=== PATIENT | male | born 1960 | race Caucasian/White ===

== ENCOUNTER 2023-10-23 14:09 | Inpatient (IN) | payer MEDICARE, SELFPAY ==
[2023-10-23] VITALS (38 sets, daily range): BP systolic 57–117; BP diastolic 36–56; PULSE 90–123; RESP 14–34; TEMP 36.9–37.1; O2SAT 86–98; BMI 58.1
--- NOTE | 2023-10-23 15:05 | XR_ITS ---
WS: [id number] Portable AP supine chest, 10/23/2023 Clinical Data: dyspnea/cough Comparison: None. Findings: No nodules, masses or effusions are seen. The heart is enlarged. The pulmonary vascularity is not increased. No pneumonia or pneumothorax is seen. The aortic arch and descending thoracic aorta show tortuosity. Monitor leads are on the chest wall. There is a dextroscoliosis. XR/XR chest 1V portable [id number] Impression: Cardiomegaly and atherosclerosis.
--- NOTE | 2023-10-23 15:05 | W.ED.GENADLT ---
Documented by User: Brijesh Gamino DO 10/24/23 07:42 HPI - General Adult General: Chief complaint: Nausea/Vomiting/Diarrhea Stated complaint: Weakness Time Seen by Provider: 10/23/23 14:11 Source: patient Mode of arrival: ambulatory History of Present Illness: Associated symptoms: Deny chest pain, dyspnea or rash Review of Systems Const: Denies: fever(s) or chills Card: Denies: chest pain Resp: Denies: dyspnea GI: Denies: abdominal pain : Denies: dysuria, urinary frequency or urinary urgency Musc: Denies: neck pain or back pain Skin/Breast: Denies: rash PFSH ED PFSH: Medical History (Updated 10/23/23 @ 21:08 by Kalpesh Main MD) History of hypertension History of diabetes mellitus, type II History of DVT (deep vein thrombosis) History of pulmonary embolism History of atrial fibrillation Surgical History (Updated 10/23/23 @ 21:04 by Kalpesh Main MD) History of cholecystectomy Family History (Updated 10/23/23 @ 21:04 by Kalpesh Main MD) Father Pancreatic cancer Sister Pancreatitis Physical Exam Const: COMMON NORMALS: no acute distress GENERAL APPEARANCE: cooperative and comfortable ORIENTATION/CONSCIOUSNESS: Yes awake, Yes oriented to person, Yes oriented to place and Yes oriented to time HENMT: COMMON NORMALS: normocephalic, atraumatic and hearing grossly normal bilaterally HEAD & SCALP: normocephalic and atraumatic Resp: COMMON NORMALS: normal respiratory effort, No retractions, No use of accessory muscles and clear to auscultation bilaterally AUSCULTATION: clear to auscultation bilaterally Cardio: COMMON NORMALS: regular rate, regular rhythm and No murmurs present (Cardio) RATE: regular rate RHYTHM: regular rhythm GI: COMMON NORMALS: Soft to palpation and No hepatosplenomegaly present AUSCULTATION: Yes normoactive bowel sounds PALPATION: Yes Soft to palpation, No Tenderness to palpation present (GI), No Guarding due to palpation present (GI) and Yes No hepatosplenomegaly present Extremity: COMMON NORMALS: normal to inspection, capillary refill normal, no clubbing, cyanosis or edema, no calf tenderness and no pedal edema Neuro: SENSORIUM/ORIENTATION: Yes oriented to person, Yes oriented to place and Yes oriented to time Skin: COMMON NORMALS: no rashes or lesions noted GENERAL SKIN EXAM: no rashes or lesions noted Course Vital Signs: Vital signs: Vital Signs Temperature 98.2 F 10/24/23 04:00 Pulse Rate 87 10/24/23 07:30 Respiratory Rate 32 H 10/24/23 07:30 Blood Pressure 118/61 10/24/23 07:30 Pulse Oximetry 86 L 10/24/23 07:30 Oxygen Delivery Me thod Nasal Cannula 10/24/23 04:00 Oxygen Flow Rate 3 10/24/23 04:00 [facility] - General Adult Medical Decision Making Patient presents severely hypotensive and septic. We are still waiting on his CT. No leukocytosis he is also jaundiced with a T. bili of 6.1 liver functions are slightly elevated and alk phos of 277 CPK of 437 and CRP 150. His lipase is 644. He started on antibiotics she was also given a fluid bolus initially given 1500 I felt there was some fluid overload on his chest x-ray he was given a balance of a 30 mL/kg fluid bolus based on his ideal weight because of his severe obesity. Patient presents in septic shock. Titrated up on Levophed added vasopressin and epinephrine. Initially there is no leukocytosis waiting CT and ultrasound of the gallbladder. Given his initial lab returned with elevated liver functions T. bili and lipase suspect choledocholithiasis/ascending cholangitis. He has been started on antibiotics. Care signed out to Dr. Lozada at change of shift. See final notes for diagnosis and disposition. Patient presents here severe septic shock I took patient over from Dr. Malcolm did place central line he is on pressors currently CT abdomen showed no acute findings he has been given antibiotics already along with fluid bolus for his ideal body weight of spoke to hospitalist Dr. Geiger will admit to the ICU Medical Records I reviewed the patient's medical records. Lab Data I reviewed the patient's lab results. 10/24/23 05:30 10/24/23 05:30 Radiology Impressions Abdomen/Pelvis CT 10/23/23 16:18 IMPRESSION: No acute abdominal findings. Gallbladder Ultrasound 10/23/23 17:38 IMPRESSION: 1. Biliary ductal dilatation with the common bile duct measuring up to approximately 1.7 cm. Correlate with LFTs and, if clinically indicated, ERCP or MRCP. 2. Fatty liver. Laboratory Results WBC 4.60 10^3/uL (3.29-11.43) 10/23/23 15:14 RBC 3.67 10^6/uL (3.85-5.65) L 10/23/23 15:14 Hgb 11.80 g/dL (11.27-16.99) 10/23/23 15:14 Hct 36.2 % (37-53) L 10/23/23 15:14 MCV 98.6 fl (82-101) 10/23/23 15:14 MCH 32.2 pg (27-33) 10/23/23 15:14 MCHC 32.6 g/dL (30-55) 10/23/23 15:14 RDW 15.9 % (12.1-15.1) H 10/23/23 15:14 Plt Count 205 10^3/cmm (157-399) 10/23/23 15:14 MPV 9.6 fL (7.4-10.4) 10/23/23 15:14 Neut % (Auto) 92.3 % 10/23/23 15:14 Lymph % (Auto) 5.7 % 10/23/23 15:14 [place] % (Auto) 0.9 % 10/23/23 15:14 Eos % (Auto) 0.0 % 10/23/23 15:14 Baso % (Auto) 0.2 % 10/23/23 15:14 Neut # (Auto) 4.25 10^3/uL (1.8-7.7) 10/23/23 15:14 Lymph # (Auto) 0.3 10^3/uL (0.8-4.8) L 10/23/23 15:14 [place] # (Auto) 0.0 10^3/uL (0.2-0.9) L 10/23/23 15:14 Eos # (Auto) 0.0 10^3/uL (0.0-0.8) 10/23/23 15:14 Baso # (Auto) 0.0 10^3/uL (0.0-0.1) 10/23/23 15:14 Nucleated RBC % (auto) 0 % 10/23/23 15:14 Nucleated RBCs # 0.0 /100WBC 10/23/23 15:14 ESR 49 mm/hr (0-10) H 10/23/23 15:14 PT 22.20 SECONDS (12.1-14.9) H 10/23/23 15:14 INR 1.87 (0.8-1.2) H 10/23/23 15:14 APTT 38.9 SECONDS (23.9-36.7) H 10/23/23 15:14 Specimen Type Arterial 10/23/23 15:15 Sample Site Radial, left 10/23/23 15:15 ABG pH 7.44 (7.35-7.45) 10/23/23 15:15 ABG pCO2 32.4 mmHg (35-45) L 10/23/23 15:15 ABG pO2 103.0 mmHg (80.0-100.0) H 10/23/23 15:15 ABG PO2/FiO2 Ratio 0 10/23/23 15:15 ABG HCO3 21.8 mmol/L (22-26) L 10/23/23 15:15 ABG O2 Saturation 99.0 10/23/23 15:15 ABG Base Excess -1.6 mmol/L (-2.0-2.0) 10/23/23 15:15 Gio Test Pos 10/23/23 15:15 A-a O2 Gradient 14.3 mmHg (5-10) H 10/23/23 15:15 Hematocrit 41.7 % (42-52) L 10/23/23 15:15 Hgb O2 Saturation 97.1 % (95-100) 10/23/23 15:15 Carboxyhemoglobin 1.4 %THgb (0.4-20.1) 10/23/23 15:15 Methemoglobin 0.5 % (0.4-1.5) 10/23/23 15:15 Total Hemoglobin 13.6 g/dL (14-18) L 10/23/23 15:15 Sodium 129.0 mmol/L (131-143) L 10/23/23 15:15 Potassium 2.6 mmol/L (3.5-5.0) L 10/23/23 15:15 Glucose 91.0 mg/dL (70-115) 10/23/23 15:15 Ionized Calcium 1.1 mmol/L (1.1-1.4) 10/23/23 15:15 O2 Delivery Device Nc 10/23/23 15:15 O2 Liters/Min 4.0 % 10/23/23 15:15 FiO2 36.0 % 10/23/23 15:15 Income Tax Investigator ID Gd 10/23/23 15:15 Sodium 128 mmol/L (136-145) L 10/23/23 15:14 Potassium 2.9 mmol/L (3.5-5.1) L 10/23/23 15:14 Chloride 91 mmol/L (98-107) L 10/23/23 15:14 Carbon Dioxide 21 mmol/L (22-29) L 10/23/23 15:14 Anion Gap 18.9 (5-19) 10/23/23 15:14 BUN 21 mg/dL (8-23) 10/23/23 15:14 Creatinine 2.1 mg/dL (0.7-1.2) H 10/23/23 15:14 GFR Calculation 32.0 mL/min (90-130) L 10/23/23 15:14 Glucose 89 mg/dL (65-115) 10/23/23 15:14 Calculated Osmolality 268 mOsm/kg (285-295) L 10/23/23 15:14 Lactic Acid 5.6 mmol/L (0.5-2.2) H* 10/23/23 15:14 Lactic Acid (Sepsis) 5.2 mmol/L (0.5-2.2) H* 10/23/23 19:35 Calcium 7.1 mg/dL (8.5-10.5) L 10/23/23 15:14 Total Bilirubin 6.1 mg/dL (0.15-1.2) H 10/23/23 15:14 GGT 616 U/L (8-61) H 10/23/23 15:14 AST 87 U/L (0-40) H 10/23/23 15:14 ALT 51 U/L (0-41) H 10/23/23 15:14 Alkaline Phosphatase 277 U/L (40-130) H 10/23/23 15:14 Ammonia 62 umol/L (16-60) H 10/23/23 15:14 Creatine Kinase 437 U/L (39-308) H* 10/23/23 15:14 Troponin T Baseline 25 ng/L (0-15) H 10/23/23 15:14 Troponin T 120 Minute 20.87 ng/L (0-15) H 10/23/23 19:35 Delta Troponin T -4.13 ABS# (0-10) L 10/23/23 19:35 C-Reactive Protein 150.5 mg/L (0.0-4.9) H 10/23/23 15:14 NT-Pro-B Natriuret Pep 2399 pg/mL (0-125) H 10/23/23 15:14 Total Protein 4.7 g/dL (6.6-8.7) L 10/23/23 15:14 Albumin 2.4 g/dL (3.5-5.2) L 10/23/23 15:14 Globulin 2.3 g/dL (1.3-4.6) 10/23/23 15:14 Lipase 644 U/L (13-60) H 10/23/23 15:14 Procalcitonin 23.47 ng/mL (0-0.5) H 10/23/23 15:14 Urine Color Dark yellow (Yellow) 10/23/23 16:00 Urine Appearance Hazy (CLEAR) A 10/23/23 16:00 Urine pH 5 (5-7) 10/23/23 16:00 Ur Specific [place] 1.020 (1.005-1.030) 10/23/23 16:00 Urine Protein Trace (Negative) 10/23/23 16:00 Urine Glucose (UA) Norm (Normal) 10/23/23 16:00 Urine Ketones Negative (Negative) 10/23/23 16:00 Urine Blood 3+ (Negative) H 10/23/23 16:00 Urine Nitrate Negative (Negative) 10/23/23 16:00 Urine Bilirubin 2+ (Negative) H 10/23/23 16:00 Urine Urobilinogen 1 mg/dL (Negative) H 10/23/23 16:00 Ur Leukocyte Esterase Negative (Negative) 10/23/23 16:00 Urine RBC 5-10 /hpf (0-2) H 10/23/23 16:00 Urine WBC 0-4 /hpf (0-5) H 10/23/23 16:00 Ur Squamous Epith Cells None /hpf (0-5) 10/23/23 16:00 Ur Transition Epith Cell 0-4 /hpf 10/23/23 16:00 Amorphous Sediment Trace /hpf 10/23/23 16:00 Urine Bacteria Trace /hpf (NONE) 10/23/23 16:00 Urine Mucus None /hpf 10/23/23 16:00 Serum Ketones Negative (Negative) 10/23/23 15:14 Discharge Plan Discharge Patient Disposition: Admitted As Inpatient Admit Provider: Kalpesh Main Clinical Impression: Septic shock Condition: Stable Coding Level of Care Code ED Pallet Stone Positioner for Chg Fwd Documented by User: Hardeep Lozada MD 10/23/23 19:57 HPI - General Adult General: Chief complaint: Nausea/Vomiting/Diarrhea Stated complaint: Weakness Time Seen by Provider: 10/23/23 14:11 History of Present Illness: . PFSH ED PFSH: Medical History (Updated 10/23/23 @ 21:08 by Kalpesh Main MD) History of hypertension History of diabetes mellitus, type II History of DVT (deep vein thrombosis) History of pulmonary embolism History of atrial fibrillation Surgical History (Updated 10/23/23 @ 21:04 by Kalpesh Main MD) History of cholecystectomy Family History (Updated 10/23/23 @ 21:04 by Kalpesh Main MD) Father Pancreatic cancer Sister Pancreatitis Procedures Central Line Placement Right IJ: Time Out Performed: Yes Patient Placed on Monitor/Pulse Ox: Yes Prep: mask, gown and gloves Central Line Prep: Chlorhexidine scrub Local Anesthetic: lidocaine 1% Amount of anesthesia used (mL): 3 Ultrasound Used for Placement: Yes Central Line Lumen Inserted: triple Post Procedure: sutured in place, good blood return, all ports aspirated, flushed, capped and sterile dressing applied Post Procedure X-Ray: tip of catheter in good position and no pneumothorax seen Patient Tolerated Procedure: well Complications: none Course Vital Signs: Vital signs: Vital Signs Temperature 98.2 F 10/24/23 04:00 Pulse Rate 87 10/24/23 07:30 Respiratory Rate 32 H 10/24/23 07:30 Blood Pressure 118/61 10/24/23 07:30 Pulse Oximetry 86 L 10/24/23 07:30 Oxygen Delivery Me thod Nasal Cannula 10/24/23 04:00 Oxygen Flow Rate 3 10/24/23 04:00 MDM - General Adult Medical Decision Making Patient presents severely hypotensive and septic. We are still waiting on his CT. No leukocytosis he is also jaundiced with a T. bili of 6.1 liver functions are slightly elevated and alk phos of 277 CPK of 437 and CRP 150. His lipase is 644. He started on antibiotics she was also given a fluid bolus initially given 1500 I felt there was some fluid overload on his chest x-ray he was given a balance of a 30 mL/kg fluid bolus based on his ideal weight because of his severe obesity Patient presents here severe septic shock I took patient over from Dr. Malcolm did place central line he is on pressors currently CT abdomen showed no acute findings he has been given antibiotics already along with fluid bolus for his ideal body weight of spoke to hospitalist Dr. Geiger will admit to the ICU Lab Data 10/24/23 05:30 10/24/23 05:30 Radiology Impressions Abdomen/Pelvis CT 10/23/23 16:18 IMPRESSION: No acute abdominal findings. Gallbladder Ultrasound 10/23/23 17:38 IMPRESSION: 1. Biliary ductal dilatation with the common bile duct measuring up to approximately 1.7 cm. Correlate with LFTs and, if clinically indicated, ERCP or MRCP. 2. Fatty liver. Laboratory Results WBC 4.60 10^3/uL (3.29-11.43) 10/23/23 15:14 RBC 3.67 10^6/uL (3.85-5.65) L 10/23/23 15:14 Hgb 11.80 g/dL (11.27-16.99) 10/23/23 15:14 Hct 36.2 % (37-53) L 10/23/23 15:14 MCV 98.6 fl (82-101) 10/23/23 15:14 MCH 32.2 pg (27-33) 10/23/23 15:14 MCHC 32.6 g/dL (30-55) 10/23/23 15:14 RDW 15.9 % (12.1-15.1) H 10/23/23 15:14 Plt Count 205 10^3/cmm (157-399) 10/23/23 15:14 MPV 9.6 fL (7.4-10.4) 10/23/23 15:14 Neut % (Auto) 92.3 % 10/23/23 15:14 Lymph % (Auto) 5.7 % 10/23/23 15:14 [place] % (Auto) 0.9 % 10/23/23 15:14 Eos % (Auto) 0.0 % 10/23/23 15:14 Baso % (Auto) 0.2 % 10/23/23 15:14 Neut # (Auto) 4.25 10^3/uL (1.8-7.7) 10/23/23 15:14 Lymph # (Auto) 0.3 10^3/uL (0.8-4.8) L 10/23/23 15:14 [place] # (Auto) 0.0 10^3/uL (0.2-0.9) L 10/23/23 15:14 Eos # (Auto) 0.0 10^3/uL (0.0-0.8) 10/23/23 15:14 Baso # (Auto) 0.0 10^3/uL (0.0-0.1) 10/23/23 15:14 Nucleated RBC % (auto) 0 % 10/23/23 15:14 Nucleated RBCs # 0.0 /100WBC 10/23/23 15:14 ESR 49 mm/hr (0-10) H 10/23/23 15:14 PT 22.20 SECONDS (12.1-14.9) H 10/23/23 15:14 INR 1.87 (0.8-1.2) H 10/23/23 15:14 APTT 38.9 SECONDS (23.9-36.7) H 10/23/23 15:14 Specimen Type Arterial 10/23/23 15:15 Sample Site Radial, left 10/23/23 15:15 ABG pH 7.44 (7.35-7.45) 10/23/23 15:15 ABG pCO2 32.4 mmHg (35-45) L 10/23/23 15:15 ABG pO2 103.0 mmHg (80.0-100.0) H 10/23/23 15:15 ABG PO2/FiO2 Ratio 0 10/23/23 15:15 ABG HCO3 21.8 mmol/L (22-26) L 10/23/23 15:15 ABG O2 Saturation 99.0 10/23/23 15:15 ABG Base Excess -1.6 mmol/L (-2.0-2.0) 10/23/23 15:15 Gio Test Pos 10/23/23 15:15 A-a O2 Gradient 14.3 mmHg (5-10) H 10/23/23 15:15 Hematocrit 41.7 % (42-52) L 10/23/23 15:15 Hgb O2 Saturation 97.1 % (95-100) 10/23/23 15:15 Carboxyhemoglobin 1.4 %THgb (0.4-20.1) 10/23/23 15:15 Methemoglobin 0.5 % (0.4-1.5) 10/23/23 15:15 Total Hemoglobin 13.6 g/dL (14-18) L 10/23/23 15:15 Sodium 129.0 mmol/L (131-143) L 10/23/23 15:15 Potassium 2.6 mmol/L (3.5-5.0) L 10/23/23 15:15 Glucose 91.0 mg/dL (70-115) 10/23/23 15:15 Ionized Calcium 1.1 mmol/L (1.1-1.4) 10/23/23 15:15 O2 Delivery Device Nc 10/23/23 15:15 O2 Liters/Min 4.0 % 10/23/23 15:15 FiO2 36.0 % 10/23/23 15:15 Income Tax Investigator ID Gd 10/23/23 15:15 Sodium 128 mmol/L (136-145) L 10/23/23 15:14 Potassium 2.9 mmol/L (3.5-5.1) L 10/23/23 15:14 Chloride 91 mmol/L (98-107) L 10/23/23 15:14 Carbon Dioxide 21 mmol/L (22-29) L 10/23/23 15:14 Anion Gap 18.9 (5-19) 10/23/23 15:14 BUN 21 mg/dL (8-23) 10/23/23 15:14 Creatinine 2.1 mg/dL (0.7-1.2) H 10/23/23 15:14 GFR Calculation 32.0 mL/min (90-130) L 10/23/23 15:14 Glucose 89 mg/dL (65-115) 10/23/23 15:14 Calculated Osmolality 268 mOsm/kg (285-295) L 10/23/23 15:14 Lactic Acid 5.6 mmol/L (0.5-2.2) H* 10/23/23 15:14 Lactic Acid (Sepsis) 5.2 mmol/L (0.5-2.2) H* 10/23/23 19:35 Calcium 7.1 mg/dL (8.5-10.5) L 10/23/23 15:14 Total Bilirubin 6.1 mg/dL (0.15-1.2) H 10/23/23 15:14 GGT 616 U/L (8-61) H 10/23/23 15:14 AST 87 U/L (0-40) H 10/23/23 15:14 ALT 51 U/L (0-41) H 10/23/23 15:14 Alkaline Phosphatase 277 U/L (40-130) H 10/23/23 15:14 Ammonia 62 umol/L (16-60) H 10/23/23 15:14 Creatine Kinase 437 U/L (39-308) H* 10/23/23 15:14 Troponin T Baseline 25 ng/L (0-15) H 10/23/23 15:14 Troponin T 120 Minute 20.87 ng/L (0-15) H 10/23/23 19:35 Delta Troponin T -4.13 ABS# (0-10) L 10/23/23 19:35 C-Reactive Protein 150.5 mg/L (0.0-4.9) H 10/23/23 15:14 NT-Pro-B Natriuret Pep 2399 pg/mL (0-125) H 10/23/23 15:14 Total Protein 4.7 g/dL (6.6-8.7) L 10/23/23 15:14 Albumin 2.4 g/dL (3.5-5.2) L 10/23/23 15:14 Globulin 2.3 g/dL (1.3-4.6) 10/23/23 15:14 Lipase 644 U/L (13-60) H 10/23/23 15:14 Procalcitonin 23.47 ng/mL (0-0.5) H 10/23/23 15:14 Urine Color Dark yellow (Yellow) 10/23/23 16:00 Urine Appearance Hazy (CLEAR) A 10/23/23 16:00 Urine pH 5 (5-7) 10/23/23 16:00 Ur Specific [place] 1.020 (1.005-1.030) 10/23/23 16:00 Urine Protein Trace (Negative) 10/23/23 16:00 Urine Glucose (UA) Norm (Normal) 10/23/23 16:00 Urine Ketones Negative (Negative) 10/23/23 16:00 Urine Blood 3+ (Negative) H 10/23/23 16:00 Urine Nitrate Negative (Negative) 10/23/23 16:00 Urine Bilirubin 2+ (Negative) H 10/23/23 16:00 Urine Urobilinogen 1 mg/dL (Negative) H 10/23/23 16:00 Ur Leukocyte Esterase Negative (Negative) 10/23/23 16:00 Urine RBC 5-10 /hpf (0-2) H 10/23/23 16:00 Urine WBC 0-4 /hpf (0-5) H 10/23/23 16:00 Ur Squamous Epith Cells None /hpf (0-5) 10/23/23 16:00 Ur Transition Epith Cell 0-4 /hpf 10/23/23 16:00 Amorphous Sediment Trace /hpf 10/23/23 16:00 Urine Bacteria Trace /hpf (NONE) 10/23/23 16:00 Urine Mucus None /hpf 10/23/23 16:00 Serum Ketones Negative (Negative) 10/23/23 15:14 All radiology interpretation(s) finalized by discharge Critical Care Time Critical Care Time: Critical Care Time: Yes Total Critical Care Time: 60 Attestation: The high probability of a clinically significant, sudden or life threatening deterioration of the patient's cv system(s) required my full and direct attention, intervention and personal management. The critical care time is as shown. This time is in addition to time spent performing any reported procedures but includes the following: [x] Data and vital sign review and interpretation [x] Patient assessment, examination and intervention [x] Documentation [x] Medication orders and management Discharge Plan Discharge Patient Disposition: Admitted As Inpatient Admit Provider: Kalpesh Main Clinical Impression: Septic shock Condition: Stable Coding Level of Care Code ED Pallet Stone Positioner for Melony Hussein
--- NOTE | 2023-10-23 15:14 | ECG_ITS ---
[facility] Test Date: 2023-10-23 Pat Name: Darrell Santos Department: Room: Gender: Male Medical Officer Psychiatry: : 1960 Requested By: Brijesh Williamson Order Number: [id number] Kurt MD: Facundo Turner M.D. Measurements Intervals [place] Rate: 110 P: 0 [place]: 0 QRS: 55 QRSD: 141 T: 25 QT: 297 QTc: 403 Interpretive Statements ATRIAL FIBRILLATION WITH RAPID VENTRICULAR RESPONSE RIGHT BUNDLE BRANCH BLOCK [120+ ms QRS DURATION, UPRIGHT V1, 40+ ms S IN I/aVL/V4/V5/V6] No previous ECG available for comparison Electronically Signed On 10-23-2023 15:54:43 CDT by Facundo Turner M.D. [id number]
[2023-10-23] MEDS: norepinephrine 4 MG/250 ML BAG 22.5 MG IV (15:17)
[2023-10-23] MEDS: sodium chloride 0.9% 1,000 ML 999 ML IV ×2 (15:18→19:58)
--- NOTE | 2023-10-23 15:21 | PC.NURSE ---
per verbal order from dr. arellano, increased Levophed to 10mcg.
[2023-10-23 15:22] LABS: Basophils % 0.2 %; Hematocrit 36.2 % (37-53); Lymphocytes # 0.3 10^3/uL (0.8-4.8); Lymphocytes % 5.7 %; Mean Corpuscular HGB Conc 32.6 g/dL (30-55); Mean Corpuscular Hemoglobin 32.2 pg (27-33); Mean Corpuscular Volume 98.6 fl (82-101); Mean Platelet Volume 9.6 fL (7.4-10.4); Monocytes % 0.9 %; Neutrophils # 4.25 10^3/uL (1.8-7.7); Neutrophils % 92.3 %; Nucleated Red Blood Cells % 0 %; Platelet Count 205 10^3/cmm (157-399); Red Blood Count 3.67 10^6/uL (3.85-5.65); Red Cell Distribution Width 15.9 % (12.1-15.1)
[2023-10-23 15:30] LABS: ABG PCO2 32.4 mmHg (35-45); ABG PH Result 7.44 (7.35-7.45); Alveolar-Arterial Oxygen Gradi 14.3 mmHg (5-10); Arterial Blood Gas Hematocrit 41.7 % (42-52); Base Excess ABG -1.6 mmol/L (-2.0-2.0); Blood Gas Allen Test Pos; Blood Gas Operator Identificat GD; Blood Gas Sample Site Radial, left; Blood Gas Sample Type Arterial; Carboxyhemoglobin 1.4 %THgb (0.4-20.1); HCO3 ABG 21.8 mmol/L (22-26); HGB O2 Sat 97.1 % (95-100); Ionized Calcium Level - ABG 1.1 mmol/L (1.1-1.4); Methemoglobin 0.5 % (0.4-1.5); Oxygen Device NC; PO2 FiO2 Ratio Arterial Blood 0; Potassium Level - ABG 2.6 mmol/L (3.5-5.0); Total Hemoglobin 13.6 g/dL (14-18)
[2023-10-23 15:30] LABS: Erythrocyte Sedimentation Rate 49 mm/hr (0-10)
[2023-10-23] MEDS: ondansetron 2 mg/ML SDV 2 mL 4 MG IVP (15:44)
[2023-10-23 15:48] LABS: Ketone (Acetest) Serum Negative (Negative)
[2023-10-23 15:49] LABS: Troponin(5th) Baseline 25 ng/L (0-15)
[2023-10-23 15:52] LABS: Ammonia 62 umol/L (16-60); Slide Review Slide Review Perform
[2023-10-23 15:55] LABS: Blood Urea Nitrogen 21 mg/dL (8-23); Carbon Dioxide 21 mmol/L (22-29); Chloride 91 mmol/L (98-107); Lactic Sepsis W/Reflex 5.6 mmol/L (0.5-2.2); Sodium 128 mmol/L (136-145)
[2023-10-23 15:56] LABS: Alanine Aminotransferase 51 U/L (0-41); Albumin Level 2.4 g/dL (3.5-5.2); Alkaline Phosphatase 277 U/L (40-130); Aspartate Amino Transferase 87 U/L (0-40); C Reactive Protein 150.5 mg/L (0.0-4.9); Calcium 7.1 mg/dL (8.5-10.5); Globulin 2.3 g/dL (1.3-4.6); Glucose 89 mg/dL (65-115); Osmolality Calculated 268 mOsm/kg (285-295); Total Bilirubin 6.1 mg/dL (0.15-1.2); Total Protein 4.7 g/dL (6.6-8.7)
[2023-10-23] MEDS: vasopressin 40 UNIT/100 ML PREMIX 0.0800000000000000017 UNIT IV (15:56)
[2023-10-23 15:59] LABS: Anion Gap 18.9 (5-19)
[2023-10-23 16:04] LABS: Lipase 644 U/L (13-60)
[2023-10-23 16:09] LABS: Creatine Phosphokinase 437 U/L (39-308); Potassium 2.9 mmol/L (3.5-5.1)
--- NOTE | 2023-10-23 16:18 | CTR_ITS ---
PROCEDURE INFORMATION: Exam: CT Abdomen And Pelvis Without Contrast Exam date and time: 10/23/2023 6:08 PM Age: 63 years old Clinical indication: Abdominal pain; Generalized TECHNIQUE: Imaging protocol: Computed tomography of the abdomen and pelvis without contrast. Radiation optimization: All CT scans at this facility use at least one of these dose optimization techniques: automated exposure control; mA and/or kV adjustment per patient size (includes targeted exams where dose is matched to clinical indication); or iterative reconstruction. COMPARISON: CR XR chest 1V portable [id number] 10/23/2023 3:44 PM RADIATION DOSE METRICS: Total DLP (mGy-cm): 1532.16 FINDINGS: Liver: No acute findings Gallbladder and bile ducts: Cholecystectomy. Pancreas: No ductal dilation. Spleen: No splenomegaly. Adrenal glands: No mass. Kidneys and ureters: Punctate nonobstructing right renal calculus. No hydronephrosis. Stomach and bowel: No obstruction. Appendix: No evidence of appendicitis. Intraperitoneal space: No free air. No significant fluid collection. Vasculature: No abdominal aortic aneurysm. Lymph nodes: 12 mm short axis left external iliac node axial image 218 with retained fatty hilum, likely reactive. Urinary bladder: Decompressed around Evans catheter. Reproductive: No acute findings. Bones/joints: No acute findings. Soft tissues: No acute findings. Other findings: Exam limited by gantry artifact. CT/CT abdomen pelvis con [id number] IMPRESSION: No acute abdominal findings.
[2023-10-23 16:22] LABS: INR 1.87 (0.8-1.2); Partial Thromboplastin Time 38.9 SECONDS (23.9-36.7)
[2023-10-23] MEDS: levofloxacin-dextrose 5 % 750 MG/150 ML PREMIX 100 MG IV (16:30)
[2023-10-23] MEDS: potassium chloride oral liq 20 mEq/15 mL UDC 40 MEQ PO (16:49)
[2023-10-23 17:06] LABS: Add Urine Microscopic? YES; Bilirubin Urine 2+ (Negative); Blood Urine 3+ (Negative); Glucose Urine UA Norm (Normal); Ketones Urine Negative (Negative); Leukocyte Esterase Urine Negative (Negative); Nitrate Urine Negative (Negative); Protein Urine Trace (Negative); Urine Appearance Hazy (CLEAR); Urine Color Dark Yellow (Yellow); Urobilinogen Urine 1 mg/dL (Negative); pH Urine 5 (5-7)
[2023-10-23 17:12] LABS: Reflex Lactate Order REFLEX LACTIC ORDERD
[2023-10-23 17:15] LABS: WBC Urine 0-4 /hpf (0-5)
[2023-10-23 17:16] LABS: Add Urine Culture? No; Amorphous Sediment Urine TRACE /hpf; Bacteria Urine TRACE /hpf; Transitional Epi Cells Urine 0-4 /hpf
--- NOTE | 2023-10-23 17:38 | USR_ITS ---
PROCEDURE INFORMATION: Exam: US Abdomen, Limited; Right Upper Quadrant Exam date and time: 10/23/2023 7:37 PM Age: 63 years old Clinical indication: Nausea and vomiting and other: Diarrhea; Prior surgery; Surgery date: 6+ months; Surgery type: Lapchole 2019; Additional info: Elevated t bili and lfts TECHNIQUE: Imaging protocol: Real time ultrasound of the abdomen with image documentation. Limited exam focused on the right upper quadrant. COMPARISON: CT abdomen pelvis wo con [id number] 10/23/2023 6:08 PM FINDINGS: Liver: Echogenic, consistent with fatty infiltration. Gallbladder: Surgically absent. Biliary ducts: Biliary ductal dilatation with the common bile duct measuring up to approximately 1.7 cm. No stones. Pancreas: Suboptimally visualized. Right kidney: No mass. No definite stones. No hydronephrosis. US/US gall bladder [id number] IMPRESSION: 1. Biliary ductal dilatation with the common bile duct measuring up to approximately 1.7 cm. Correlate with LFTs and, if clinically indicated, ERCP or MRCP. 2. Fatty liver.
--- NOTE | 2023-10-23 18:45 | XRR_ITS ---
PROCEDURE INFORMATION: Exam: XR Chest Exam date and time: 10/23/2023 6:53 PM Age: 63 years old Clinical indication: Device placement; Other: Central line TECHNIQUE: Imaging protocol: Radiologic exam of the chest. Views: 1 view. COMPARISON: CR XR chest 1V portable [id number] 10/23/2023 3:44 PM FINDINGS: Right-sided central line tip projects over the mid SVC. XR/XR chest 1V portable [id number] IMPRESSION: As above.
--- NOTE | 2023-10-23 19:10 | ECG_ITS ---
[facility] Test Date: 2023-10-23 Pat Name: Darrell Santos Department: Room: Gender: Male Scientific Editor: : 1960 Requested By: Brijesh Williamson Order Number: [id number] Kurt MD: Facundo Turner M.D. Measurements Intervals [place] Rate: 104 P: 0 [place]: 0 QRS: 50 QRSD: 150 T: 9 QT: 340 QTc: 449 Interpretive Statements ATRIAL FIBRILLATION WITH RAPID VENTRICULAR RESPONSE INTRAVENTRICULAR CONDUCTION DELAY [130+ ms QRS DURATION] Compared to ECG 10/23/2023 15:14:57 Intraventricular conduction delay now present Right bundle-branch block no longer present Electronically Signed On 10-23-2023 22:49:15 CDT by Facundo Turner M.D. [id number]
[2023-10-23] MEDS: piperacillin-tazobactam 3.375 GM in sodium chloride 0.9% (plus) 50 ML IV (19:19)
[2023-10-23] MEDS: norepinephrine 4 MG/250 ML BAG 75 MG IV ×2 (19:21→22:24)
[2023-10-23] MEDS: EPINEPHrine 2.5 MG in sodium chloride 0.9% 250 ML 1135.24000000000001 MG IV (19:31)
[2023-10-23] MEDS: albumin 50 G/200 ML BAG 60 G IV (19:58)
[2023-10-23 19:59] LABS: Gamma Glutamyl Transferase 616 U/L (8-61)
--- NOTE | 2023-10-23 20:02 | PC.NURSE ---
Per Dr Main run mx fluids at 999 due to hypotension
[2023-10-23 20:06] LABS: Procalcitonin 23.47 ng/mL (0-0.5)
[2023-10-23] MEDS: metoclopramide 5 mg/mL SDV 2 mL IVP (20:12)
--- NOTE | 2023-10-23 20:40 | P.ANES_ITS ---
Anesthesia Procedures Procedure/Date: 10/23/23 Arterial Line: Time Out Performed: Yes Consent: requested by attending/covering physician, risks and benefits reviewed and patient agrees to proceed Size (Gauge): 20 Technique Used: guide wire technique Post- Procedure: dry sterile dressing placed Patient Tolerated Procedure: well Complications: none Site: left and radial Additional Comments: Left radial Arrow kit, 0.5mls of 2% lido local, patient tolerated well.
--- NOTE | 2023-10-23 20:52 | P.HP_ITS ---
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 Currently patient is alert oriented x 3, following all commands, blood pressures 50s over 40s, heart rates 108, respiratory 25 temperature 98.6, he is 92% on 2 L, following all commands, ultrasound is at bedside doing an abdominal ultrasound, patient's 2 sisters are at bedside. Currently patient has 3 pressors running Levophed at 20, vasopressin, epi, he has received 3 L so far. Patient tells me that he had a cholecystectomy about 5 years ago, according to patient's sisters, patient saw his primary care provider a few weeks ago his primary care provider was worried about his liver function, so he had referred him to GI however patient had not followed up. He tells me that starting on roughly Saturday he started not to feel well nausea vomiting, poor appetite, no diarrhea, no chest pain, shortness of breath, no dysuria. He has nausea vomiting per persisted throughout the weekend with developing subjective fevers, feeling lightheaded, dizzy, weak all over. Patient's white count 4.6 CRP 150, Pro-Herb 23.46, bili 6.1, GGT 616, AST 87, ALT 51, lipase 644, albumin 2.4, lactic acid 5.6, creatinine 2.1, potassium 2.9, bicarb 21 ABG shows pH is 7.44, pCO2 32.4, pO2 103, he is 4 L but currently on 2 L. Spoke to imaging technician at bedside, who informed me that patient CBD is 1.7 cm, has 2 and a tube sign on the ultrasound, intra extrahepatic biliary dilatation. CT scan head no acute findings. I did detailed discussion with patient and his family bedside currently he is in severe septic shock on 3 pressors, resistant shock 2 pressors, blood pressures 50s over 40s, likely secondary to acute ascending cholangitis. Currently patient has a high risk of morbidity and mortality if we do not stabilize him, he is going to need an urgent ERCP procedure but currently he is too unstable to be transferred given being on 3 pressors and blood pressures still 50s over 40s, MAP less than 65. Currently he is maintaining his airway, following all commands has good mentation. However with acute ascending cholangitis is a high risk of morbidity and mortality high risk of , if he does not get an urgent ERCP procedure. I had a detailed discussion with patient and his sisters at bedside, currently has a high risk of morbidity and mortality currently status is critical, prognosis is poor, with severe septic shock, multiorgan failure, acute renal failure, with source of infection being the acute ascending cholangitis. I am going to do my best to stabilize him, he has had a central line placed, I have discussed with anesthesiology, to put in a arterial line. If his mentation worsens, his respiratory status worsens he might require intubation, discussed morbidity and mortality associate with intubation specially given his BMI 57.6. After discussing the risk and benefits of all options, he voiced understanding, all question answered, agreed to proceed with full medical interventions, including transfer, including ERCP including ICU transfer here in the hospital, wants to be a full code and wants everything to be done. In the ER, I gave him 200 g of albumin, another fluid bolus, he is Levophed was titrated, his epi and vasopressin was titrated, moved to the intensive care unit. He was monitored in the intensive care unit, maps now hovering around 65 has an arterial line in place, I have started him on broad-spectrum antibiotic therapy vancomycin, Zosyn, remains alert oriented x 3, following all commands remains on 2 L. Heart rates 108 it looks like he is in A-fib, he was started on amiodarone but I will hold off for now given his rates are not significantly elevated, worried about hypotension with amiodarone especially with his septic shock. He has a Evans catheter in place with his acute renal failure. I spoke to [facility], initially they had excepted patient however as patient had moved from the ER to the ICU, they cannot accept him anymore as they were willing to accept him in the ER however as he is moved to the ICU if he would have to be in ICU to ICU level transfer but they do not have any beds. [facility] does not have any beds. I spoke to [facility], spoke to the transfer line then spoke to the pit shovel operator, they have accepted the patient, we discussed transfer and with the safest way to transfer patient, need patient to be more stabilized, before transferring. , awaiting more stabilization before he can be transferred for urgent ERCP procedure at [facility]. I then spoke to nursing staff to call [facility], [facility] is not flying currently due to weather, but will reassess over the next few hours we will consider [facility] if the weather clears up, or can consider fixed wing versus ground transfer if it is about 2 to 3 hours to [facility]. I had a meeting with patient and his family, discussed that currently he is in severe septic shock, status is critical prognosis is poor, second acute descending colon jaundice with acute renal failure, severe septic shock severe lactic acidosis. I am going to do my best to stabilize him currently in the ICU, he has been excepted to [facility]. We discussed the morbidity and mortality associated with transfer, and that I do my best to stabilize him for transfer however there is no perfect scenario, there is significant risks of transfer, morbidity mortality associate with transfer including but not limited to worsening of his septic shock, cardiac arrest, respiratory failure. I will do my best to stabilize him here and if he can become more stabilized potentially, off pressors, then maybe we can take that risk and transfer him to [facility]. However given the severity of his medical condition, given his acute ascending cholangitis there will be a perfect situation or perfect scenario to transfer him and family and patient are aware of that. There is significant risk of transfers after discussing the risk and benefits, they voiced understanding, all question answered, agreed to proceed. Will keep a very close eye on him throughout the night, patient's family and patient voiced understanding, all questions answered Review of Systems 2 Const: Reports: fever(s), fatigue and malaise Card: Denies: chest pain Resp: Denies: dyspnea GI: Reports: abdominal pain, nausea and vomiting Medications/Allergies Allergies Allergy/AdvReac Type Severity Reaction Status Date / Time No Known Allergies Allergy Verified 10/23/23 15:02 PFSH Acute 2 PFSH: Medical History (Updated 10/23/23 @ 21:08 by Kalpesh Main MD) History of hypertension History of diabetes mellitus, type II History of DVT (deep vein thrombosis) History of pulmonary embolism History of atrial fibrillation Surgical History (Updated 10/23/23 @ 21:04 by Kalpesh Main MD) History of cholecystectomy Family History (Updated 10/23/23 @ 21:04 by Kalpesh Main MD) Father Pancreatic cancer Sister Pancreatitis Vitals/I&O/Wt Last Vital Signs Temp 98.6 F 10/23/23 20:18 Pulse 108 H 10/23/23 20:18 Resp 27 H 10/23/23 20:18 BP 70/51 10/23/23 20:18 Pulse Ox 92 10/23/23 20:18 O2 Del Method Room Air 10/23/23 14:19 10/23/23 10/23/23 10/23/23 06:59 14:59 22:59 Intake Total 3700.030 / 3700.030 Balance 3700.030 / 3700.030 Weight last 48 hrs Weight 187.334 kg Physical Exam 2 Const: COMMON NORMALS: no acute distress and patient oriented x3 HENMT: COMMON NORMALS: normocephalic HEAD & SCALP: normocephalic Eye: COMMON NORMALS: Equal, round and reactive pupils present Neck/C-Spine: COMMON NORMALS: no lymphadenopathy Resp: COMMON NORMALS: normal respiratory effort, No retractions, No use of accessory muscles and clear to auscultation bilaterally AUSCULTATION: clear to auscultation bilaterally Cardio: COMMON NORMALS: S1 normal heart sound present and S2 normal heart sound present RATE: tachycardic RHYTHM: abnormal rhythm irregularly irregular HEART SOUNDS: S1 normal heart sound present and S2 normal heart sound present GI: OTHER: Abdomen soft, distended, diminished bowel sounds in all 4 quadrants, does have epigastric and right upper quadrant tenderness, no guarding, no rebound, no rigidity : OTHER: No CVA tenderness Extremity: NARRATIVE EXTREMITY EXAM: 1+ pitting edema Neuro: COMMON NORMALS: patient oriented x3, CN's II-XII intact bilaterally and moves all extremities Urinary Catheter Management: Evans: Cath Placed During This Visit: yes Reason for Continuing Indwelling Catheter: Accurate Measurement of Urinary Output in Critically Ill Patients Urinary Catheter Date of Insertion: 10/23/23 Urinary Catheter Time of Insertion: 16:17 Sepsis: Is patient septic: Yes Focused sepsis exam performed: Yes Date exam was performed: 10/23/23 Time exam was performed: 20:00 Data 10/23/23 15:14 10/23/23 15:14 A&P Assessment and plan (1) Septic shock: (2) Acute obstructive cholangitis: (3) Lactic acidosis: (4) Acute hypoxemic respiratory failure: (5) Hyponatremia: (6) Hypokalemia: (7) Acute renal failure: (8) Dilated cbd, acquired: (9) Hyperbilirubinemia: (10) NSTEMI (non-ST elevated myocardial infarction): (11) Morbid obesity: Plan Acute ascending cholangitis ? With septic shock ? With lactic acidosis ? With metabolic acidosis ? CBD 1.7 cm, intrahepatic biliary dilatation, too many tubes sign on US -Bili 6.1, transaminitis, alk phos 277 ? Plan ? Monitor in the ICU closely ? Central line in place, ? On Levophed ? On vasopressin, -On epinephrine drip ? Albumin therapy ? Fluid boluses to maintain MAP greater than 65 ? Vancomycin, Zosyn ? Blood cultures ? Monitor respiratory status closely, low threshold for intubation ? Protonix for GI prophylaxis ? Full code ? Heparin drip for DVT prophylaxis Acute hypoxic respiratory failure History of hypercarbic respiratory failure secondary to severe sleep apnea on BiPAP ? Continue BiPAP therapy here ?low threshold for intubation based on clinical progress, to maintain airway Septic shock ? On multiple pressors ? Secondary to descending colon guidance, obstructive Lactic acidosis Metabolic acidosis, 1 amp of bicarb NSTEMI ? Type I versus type II ? Serial troponins, serial EKGs, telemetry monitoring History of DVT, history of saddle PE ? Will switch to heparin drip History of atrial fibrillation, heart rate 108 atrial fibrillation ? Will consider amiodarone drip based on heart rate, and clinical progress Morbid obesity Type II days mellitus, low-dose sliding scale Prognosis poor, status critical, full code, next of kin patient's 2 sisters notified Procedures Arterial Line Size (Gauge): 20 Attestations 2 Medical Necessity Statement*: Patient requires hospitalization, inpatient, greater than 2 minutes, for septic shock, secondary to acute ascending cholangitis, CBD dilatation, septic shock, acute renal failure, lactic acidosis acute hypoxic respiratory failure, Coding Level of Care Code Critical Care >/= 30 minutes Critical care time (in minutes): 90 The high probability of a clinically significant, sudden or life threatening deterioration, as referenced in this documentation, required my full and direct attention, intervention and personal management. The critical care time shown is in addition to time spent performing any reported separately billable procedures and includes the following: [x] Data and vital sign review and interpretation [x ] Patient assessment, examination and intervention [x] Medication orders and management [x] Patient/Family updates as able [x] Care Coordination and Documentation. Diagnoses Septic shock A41.9; R65.21 Acute obstructive cholangitis K83.09 Lactic acidosis E87.20 Acute hypoxemic respiratory failure J96.01 Hyponatremia E87.1 Hypokalemia E87.6 Acute renal failure N17.9 Dilated cbd, acquired K83.8 Hyperbilirubinemia E80.6 NSTEMI (non-ST elevated myocardial infarction) I21.4 Morbid obesity E66.01
[2023-10-23 20:55] LABS: NT Pro B Type Natriuretic Pept 2399 pg/mL (0-125)
[2023-10-23] MEDS: vancomycin 2,000 MG/400 ML PIGGYBACK 200 MG IV (20:56)
[2023-10-23 20:59] LABS: Lactic Acid level (Lactate) 5.2 mmol/L (0.5-2.2)
[2023-10-23 21:01] LABS: Troponin 5 2HR 20.87 ng/L (0-15)
[2023-10-23 21:03] LABS: Troponin 5 2HR Delta -4.13 ABS# (0-10)
--- NOTE | 2023-10-23 21:04 | PC.NURSE ---
Evans Catheter: Placed in ER, unknown time of insertion.
--- NOTE | 2023-10-23 21:06 | ECG_ITS ---
[facility] Test Date: 2023-10-23 Pat Name: Darrell Santos Department: Room: ICU10 Gender: Male [employer]: : [id number] Requested By: Brijesh Williamson Order Number: [id number] Kurt MD: Facundo Turner M.D. Measurements Intervals [place] Rate: 98 P: 0 W[place]: 0 QRS: 19 QRSD: 155 T: 10 QT: 364 QTc: 465 Interpretive Statements ATRIAL FIBRILLATION INTRAVENTRICULAR CONDUCTION DELAY [130+ ms QRS DURATION] Compared to ECG 10/23/2023 19:10:27 No significant changes Electronically Signed On 10-23-2023 22:48:35 CDT by Facundo Turner M.D. [email or web address]
[2023-10-23 21:25] LABS: Glucose Point of Care 155 mg/dL (70-110)
[2023-10-23] MEDS: sodium bicarbonate 8.4% 1 mEq/mL 50mL Syr 50 MEQ IVP (21:25)
[2023-10-23] MEDS: pantoprazole 40 mg SDV IVP (21:25)
[2023-10-23 22:21] LABS: Platelet Count 230 10^3/cmm (157-399)
[2023-10-23] MEDS: sodium chloride 0.9% 1,000 ML 100 ML IV (22:31)
[2023-10-23] MEDS: benzonatate 100 mg Capsule PO (22:31)
[2023-10-23 22:46] LABS: Troponin 5 6HR 20.29 ng/L (0-15)
[2023-10-23 22:47] LABS: Troponin 5 6HR Delta -4.71 ng/L (0-12)
[2023-10-23 22:48] LABS: Chol HDL Ratio 8.93 mg/dL (1.0-5.00); Cholesterol 125 mg/dL (0-200); HDL Cholesterol 14 mg/dL (60-100); LDL Cholesterol Calculated 81 mg/dL (50-129); LDL HDL Ratio 5.79 RATIO (0.00-3.22); Triglycerides 152 mg/dL (0-150)
[2023-10-23] MEDS: heparin drip 25,000 UNIT/500 ML PREMIX 52.4500000000000028 UNIT IV (22:51)
[2023-10-23 23:20] LABS: Estmated Average Glucose 103; Hemoglobin A1C 5.2 % (4.0-6.0)
[2023-10-23] MEDS: EPINEPHrine 2.5 MG in sodium chloride 0.9% 250 ML 114 MG IV (23:43)
[2023-10-23 23:48] LABS: Thyroid Stimulating Hormone 0.89 uIU/mL (0.27-4.20)
[2023-10-24] VITALS (47 sets, daily range): BP systolic 87–138; BP diastolic 43–86; PULSE 82–113; RESP 18–36; TEMP 36.8–36.9; O2SAT 86–96; BMI 58.4
[2023-10-24] MEDS: piperacillin-tazobactam 3.375 GM in sodium chloride 0.9% (plus) 50 ML IV ×2 (01:02→08:47)
[2023-10-24] MEDS: norepinephrine 4 MG/250 ML BAG 75 MG IV ×4 (01:41→11:10)
[2023-10-24] MEDS: EPINEPHrine 2.5 MG in sodium chloride 0.9% 250 ML 114 MG IV (01:42)
[2023-10-24] MEDS: lanolin oint 7 gm 1 APPLIC TOPICAL (02:11)
[2023-10-24] MEDS: promethazine 25 mg/mL SDV 1 mL 12.5 MG IM ×2 (02:20→11:12)
--- NOTE | 2023-10-24 04:23 | PC.NURSE ---
Transfer Attempts Patient accepted into in [place], [place] in the medical ICU, 5th floor bed 31; Report called to Arsalan Alejo RN. Air transportation attempted to be placed with air evac as well as survival flight at 0000 and 0400. Both attempts declined due to inclement weather. Patient's family requested transportation check for [place] as well; air transportation declined for this trip due to inclement weather also. Dr. Main notified.
[2023-10-24] MEDS: phenol oral Spray 177 mL 3 SPRAY MUCOUS MEM (04:33)
[2023-10-24] MEDS: ondansetron 2 mg/ML SDV 2 mL 4 MG IVP (04:58)
[2023-10-24 05:06] LABS: ABG PCO2 33.4 mmHg (35-45); ABG PH Result 7.24 (7.35-7.45); Arterial Blood Gas Hematocrit 32.6 % (42-52); Base Excess ABG -11.9 mmol/L (-2.0-2.0); Blood Gas Allen Test Pos; Blood Gas Operator Identificat JB; Blood Gas Sample Site Not specified; Blood Gas Sample Type Arterial; HCO3 ABG 14.4 mmol/L (22-26); Oxygen Device NC; PO2 ABG 89.7 mmHg (80.0-100.0)
[2023-10-24] MEDS: albumin 25 G/100 ML BAG 60 G IV (05:51)
[2023-10-24 06:10] LABS: Reflex FDPQ test REFLEX FDP QUEST TES
[2023-10-24 06:12] LABS: Hematocrit 34.9 % (37-53); Mean Corpuscular HGB Conc 32.7 g/dL (30-55); Mean Corpuscular Hemoglobin 32.4 pg (27-33); Mean Corpuscular Volume 99.1 fl (82-101); Mean Platelet Volume 10.2 fL (7.4-10.4); Platelet Count 209 10^3/cmm (157-399); Red Blood Count 3.52 10^6/uL (3.85-5.65); Red Cell Distribution Width 16.3 % (12.1-15.1); White Blood Count 14.89 10^3/uL (3.29-11.43)
[2023-10-24 06:30] LABS: Fibrinogen 630 mg/dL (174-498)
[2023-10-24 06:31] LABS: Alanine Aminotransferase 68 U/L (0-41); Albumin Level 2.9 g/dL (3.5-5.2); Alkaline Phosphatase 218 U/L (40-130); Anion Gap 24.5 (5-19); Aspartate Amino Transferase 141 U/L (0-40); Blood Urea Nitrogen 20 mg/dL (8-23); Carbon Dioxide 16 mmol/L (22-29); Chloride 91 mmol/L (98-107); Globulin 3.1 g/dL (1.3-4.6); Glomerular Filtration Rate 43.7 mL/min (90-130); Glucose 315 mg/dL (65-115); Magnesium 1.5 mg/dL (1.7-2.3); Osmolality Calculated 281 mOsm/kg (285-295); Phosphorus 3.9 mg/dL (2.5-4.5); Potassium 3.5 mmol/L (3.5-5.1); Sodium 128 mmol/L (136-145); Total Bilirubin 6.9 mg/dL (0.15-1.2)
[2023-10-24 06:32] LABS: C Reactive Protein 252.8 mg/L (0.0-4.9); Creatinine Clr Calc Pharmacy 79.7203
[2023-10-24 06:33] LABS: D Dimer 1.44 ug/mLFEU (0-0.59)
[2023-10-24 06:35] LABS: Lactic Sepsis W/Reflex 8.4 mmol/L (0.5-2.2)
[2023-10-24 06:39] LABS: NT Pro B Type Natriuretic Pept 8244 pg/mL (0-125)
[2023-10-24] MEDS: sodium bicarbonate 8.4% 1 mEq/mL 50mL Syr 50 MEQ IVP (06:39)
[2023-10-24] MEDS: benzonatate 100 mg Capsule PO (06:56)
--- NOTE | 2023-10-24 07:00 | XR_ITS ---
WS: [id number] Portable AP supine chest, 10/24/2023 Clinical Data: sob Comparison: Portable chest, 10/23/2023 Findings: No nodules or masses are seen. The heart is slightly enlarged. The pulmonary vascularity i s not increased. No pneumonia or pneumothorax is seen. The left diaphragm is slightly elevated and th ere may be a small left effusion. The right internal jugular venous catheter remains in the same posi tion. The aortic arch and descending thoracic aorta show tortuosity. There are monitor leads on the c hest wall. XR/XR chest 1V portable [id number] Impression: 1. Atherosclerosis and cardiomegaly. 2. Small left pleural effusion.
[2023-10-24] MEDS: metoclopramide 5 mg/mL SDV 2 mL IVP (07:02)
[2023-10-24 07:07] LABS: Slide Review Slide Review Perform
[2023-10-24 07:08] LABS: Absolute Neutrophil 13.3 10^3/cmm (1.4-6.5); Absolute Segmented Neutrophil 9.2 10/cmm (1.6-7.1); Anisocytosis Trace; Eosinophils 0 %; Lymphocytes 7 %; Monocytes Absolute 0.6 10^3/cmm (0.1-0.6); Platelet Estimate Normal (Normal); Segmented Neutrophils 62 %; Total Cells Counted 100 (0-100)
[2023-10-24 07:13] LABS: Partial Thromboplastin Time > 250.0 SECONDS (23.9-36.7)
--- NOTE | 2023-10-24 07:15 | PC.NURSE ---
0715 Lab called PTT result of >250, so stopped Heparin gtt. Will order another PTT draw in 6 hours.
[2023-10-24] MEDS: vasopressin 40 UNIT/100 ML PREMIX 0.0800000000000000017 UNIT IV (07:26)
--- NOTE | 2023-10-24 07:54 | PC.NURSE ---
Cough/Sore throat At approximately 2100, patient complaining of pain associated with cough. Dr. Main contacted and order received for 100 mg tessalon perles TID PRN. At approximately 0400, patient complaining of sore throat. Dr. Main contacted; order received for phenol throat spray PRN. See MAR for details.
[2023-10-24 07:56] LABS: Reflex Lactate Order REFLEX LACTIC ORDERD
[2023-10-24 08:08] LABS: Glucose Point of Care 272 mg/dL (70-110)
[2023-10-24] MEDS: insulin lispro 100 unit/1 mL SUBCUT (08:11)
[2023-10-24] MEDS: sodium chloride 0.9% 1,000 ML 100 ML IV (08:40)
[2023-10-24] MEDS: pantoprazole 40 mg SDV IVP (08:43)
--- NOTE | 2023-10-24 08:44 | P.TS_ITS ---
Transfer Summary Providers Date of Admission: 10/23/23 19:54 Date of Discharge/Transfer: 10/24/23 Attending Provider at Admission: Kalpesh Main MD Attending Provider at Transfer: Leslee Ortega MD Primary Care Provider: DAISY KNOWLES MD Transfer Plans: Anticipated date of transfer: 10/24/23 . Receiving Facility: [facility] . Receiving Provider: Dr. Encarnacion . Diagnoses at Discharge Discharge Diagnosis (1) Septic shock: Status: Acute (2) Acute obstructive cholangitis: Status: Acute (3) Lactic acidosis: Status: Acute (4) Acute hypoxemic respiratory failure: Status: Acute (5) Hyponatremia: Status: Acute (6) Hypokalemia: Status: Acute (7) Acute renal failure: Status: Acute (8) Dilated cbd, acquired: Status: Acute (9) Hyperbilirubinemia: Status: Acute (10) NSTEMI (non-ST elevated myocardial infarction): Status: Acute (11) Morbid obesity: Status: Acute Reason for Visit Reason for Visit Weakness Brief History: Darrell Santos is a 63 year old male with a past medical history of atrial fibrillation, on Xarelto, 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 Currently patient is alert oriented x 3, following all commands, blood pressures 50s over 40s, heart rates 108, respiratory 25 temperature 98.6, he is 92% on 2 L, following all commands, ultrasound is at bedside doing an abdominal ultrasound, patient's 2 sisters are at bedside. Currently patient has 3 pressors running Levophed at 20, vasopressin, epi, he has received 3 L so far. Patient tells me that he had a cholecystectomy about 5 years ago, according to patient's sisters, patient saw his primary care provider a few weeks ago his primary care provider was worried about his liver function, so he had referred him to GI however patient had not followed up. He tells me that starting on roughly Saturday he started not to feel well nausea vomiting, poor appetite, no diarrhea, no chest pain, shortness of br eath, no dysuria. He has nausea vomiting per persisted throughout the weekend with developing subjective fevers, feeling lightheaded, dizzy, weak all over. Patient's white count 4.6 CRP 150, Pro-Herb 23.46, bili 6.1, GGT 616, AST 87, ALT 51, lipase 644, albumin 2.4, lactic acid 5.6, creatinine 2.1, potassium 2.9, bicarb 21 ABG shows pH is 7.44, pCO2 32.4, pO2 103, he is 4 L but currently on 2 L. Spoke to fuel cell technician at bedside, who informed me that patient CBD is 1.7 cm, has 2 and a tube sign on the ultrasound, intra extrahepatic biliary dilatation. CT scan head no acute findings. I did detailed discussion with patient and his family bedside currently he is in severe septic shock on 3 pressors, resistant shock 2 pressors, blood pressures 50s over 40s, likely secondary to acute ascending cholangitis. Currently patient has a high risk of morbidity and mortality if we do not stabilize him, he is going to need an urgent ERCP procedure but currently he is too unstable to be transferred given being on 3 pressors and blood pressures still 50s over 40s, MAP less than 65. Currently he is maintaining his airway, following all commands has good mentation. However with acute ascending cholangitis is a high risk of morbidity and mortality high risk of , if he does not get an urgent ERCP procedure. I had a detailed discussion with patient and his sisters at bedside, currently has a high risk of morbidity and mortality currently status is critical, prognosis is poor, with severe septic shock, multiorgan failure, acute renal failure, with source of infection being the acute ascending cholangitis. I am going to do my best to stabilize him, he has had a central line placed, I have discussed with anesthesiology, to put in a arterial line. If his mentation worsens, his respiratory status worsens he might require intubation, discussed morbidity and mortality associate with intubation specially given his BMI 57.6. After discussing the risk and benefits of all options, he voiced understanding, all question answered, agreed to proceed with full medical interventions, including transfer, including ERCP including ICU transfer here in the hospital, wants to be a full code and wants everything to be done. In the ER, I gave him 200 g of albumin, another fluid bolus, he is Levophed was titrated, his epi and vasopressin was titrated, moved to the intensive care unit. He was monitored in the intensive care unit, maps now hovering around 65 has an arterial line in place, I have started him on broad-spectrum antibiotic therapy vancomycin, Zosyn, remains alert oriented x 3, following all commands remains on 2 L. Heart rates 108 it looks like he is in A-fib, he was started on amiodarone but I will hold off for now given his rates are not significantly elevated, worried about hypotension with amiodarone especially with his septic shock. He has a Evans catheter in place with his acute renal failure. I spoke to [facility], initially they had excepted patient however as patient had moved from the ER to the ICU, they cannot accept him anymore as they were willing to accept him in the ER however as he is moved to the ICU if he would have to be in ICU to ICU level transfer but they do not have any beds. [facility] does not have any beds. I spoke to [facility], spoke to the transfer line then spoke to the seat pack inspector, they have accepted the patient, we discussed transfer and with the safest way to transfer patient, need patient to be more stabilized, before transferring. , awaiting more stabilization before he can be transferred for urgent ERCP procedure at [facility]. I then spoke to nursing staff to call [facility], [facility] is not flying currently due to weather, but will reassess over the next few hours we will consider [facility] if the weather clears up, or can consider fixed wing versus ground transfer if it is about 2 to 3 hours to [facility]. I had a meeting with patient and his family, discussed that currently he is in severe septic shock, status is critical prognosis is poor, second acute descending colon jaundice with acute renal failure, severe septic shock severe lactic acidosis. I am going to do my best to stabilize him currently in the ICU, he has been excepted to [facility]. We discussed the morbidity and mortality associated with transfer, and that I do my best to stabilize him for transfer however there is no perfect scenario, there is significant risks of transfer, morbidity mortality associate with transfer including but not limited to worsening of his septic shock, cardiac arrest, respiratory failure. I will do my best to stabilize him here and if he can become more stabilized potentially, off pressors, then maybe we can take that risk and transfer him to [facility]. However given the severity of his medical condition, given his acute ascending cholangitis there will be a perfect situation or perfect scenario to transfer him and family and patient are aware of that. There is significant risk of transfers after discussing the risk and benefits, they voiced understanding, all question answered, agreed to proceed. Will keep a very close eye on him throughout the night, patient's family and patient voiced understanding, all questions answered Hospital Course Hospital Course Had a detailed discussion with overnight admitting physician Dr. Geiger and went over the whole case with him. Patient admitted overnight with a diagnosis of acute ascending cholangitis found to be in septic shock. Patient has a worsening lactic acidosis, CBD dilation 1.7 cm intrahepatic biliary dilatation tube site on ultrasound. Bili 6.1. Lactic acid this morning 8.2. ABG done earlier at 4 AM shows pH 7.24. Patient did receive amp of bicarb. Initially patient was maxed out on epinephrine vasopressin and Levophed however epinephrine has been weaned off at this point. He is on fixed dose vasopressin and 20 of Levophed. Patient's blood pressures in the 4 hours have been 108-1 18 systolic over 58-65 diastolic. He is on 3 L nasal cannula saturating 93%. Slightly tachycardic 10 1-1 05. I discussed with patient's family at bedside that I believe this is the most able to patient is going to get and since he came off of the 3rd pressor this is our window opportunity to transfer the patient up to [place]. If patient is not transferred the risk of dying is much higher him staying here versus taking the risk of transporting to [place] for 3-1/2-hour ride. Family is well aware of the situation and understands that he may even in transport. I discussed with seat pack inspector up in [place] who agrees that this may be the opportunity to transfer the patient however he leaves it to my discretion regarding the stability of the patient. After detailed discussion going over all the labs and patient's recent vitals it was decided that we will transfer the patient up to [place]. Discussed with family and the patient as well. They agree with the above. Patient's images have been clouded over to [place] already. I have requested pharmacy to have a bag of epinephrine and 1 A of bicarb ready to be sent with the patient on the trip. An amp of bicarb to be given detention through the trip. They may start epinephrine if patient requires a third pressor. Patient alert oriented talking at this time. Was able to be part of the decision-making process. We have called [facility] for transport. They should be here within 45 minutes. Will transfer patient.Patient is in critical but stable condition at this moment. Patient will be sent by ground ambulance. [facility] option was looked into [facility] secondary to weather they are not flying at this time. Fixed wing also not flying. Physical Exam Const: COMMON NORMALS: no acute distress and patient oriented x3 HENMT: COMMON NORMALS: normocephalic HEAD & SCALP: normocephalic Eye: COMMON NORMALS: Equal, round and reactive pupils present PUPIL: Yes Equal, round and reactive pupils present Neck/C-Spine: COMMON NORMALS: no lymphadenopathy Resp: COMMON NORMALS: normal respiratory effort, No retractions, No use of accessory muscles and clear to auscultation bilaterally AUSCULTATION: clear to auscultation bilaterally Cardio: COMMON NORMALS: S1 normal heart sound present and S2 normal heart sound present RATE: tachycardic RHYTHM: abnormal rhythm irregularly irregular HEART SOUNDS: S1 normal heart sound present and S2 normal heart sound present GI: OTHER: Abdomen soft, distended, diminished bowel sounds in all 4 quadrants, does have epigastric and right upper quadrant tenderness, no guarding, no rebound, no rigidity : OTHER: No CVA tenderness Extremity: NARRATIVE EXTREMITY EXAM: 1+ pitting edema Neuro: COMMON NORMALS: patient oriented x3, CN's II-XII intact bilaterally and moves all extremities Urinary Catheter Management: Evans: Cath Placed During This Visit: yes Reason for Continuing Indwelling Catheter: Accurate Measurement of Urinary Output in Critically Ill Patients Urinary Catheter Date of Insertion: 10/23/23 Urinary Catheter Time of Insertion: 16:17 Sepsis: Is patient septic: Yes Focused sepsis exam performed: Yes Date exam was performed: 10/23/23 Time exam was performed: 20:00 TS Data Studies Completed and Pending Pending at discharge Category Date Time Status XR chest 1V portable [id number] Routine Exams 10/24/23 07:00 Taken Arterial Blood Gas W/O Coox AM LABS Lab 10/25/23 04:00 Ordered Arterial Blood Gas W/O Coox AM LABS Lab 10/26/23 04:00 Ordered Blood Culture Routine Lab 10/23/23 21:55 Results C Reactive Protein AM LABS Lab 10/25/23 04:00 Ordered C Reactive Protein AM LABS Lab 10/26/23 04:00 Ordered DIC Profile AM LABS Lab 10/25/23 04:00 Ordered DIC Profile AM LABS Lab 10/26/23 04:00 Ordered Fibrinogen Degradation Product Routine Lab 10/24/23 06:10 Received Lactate (Lactic Acid level) AM LABS Lab 10/25/23 04:00 Ordered Lactate (Lactic Acid level) AM LABS Lab 10/26/23 04:00 Ordered Lactic Acid level (Lactate) Stat Lab 10/24/23 08:15 Received NT Pro B Type Natriuretic Pept QAM Lab 10/25/23 06:00 Ordered NT Pro B Type Natriuretic Pept QAM Lab 10/26/23 06:00 Ordered PTT [Partial Thromboplastin Time] Timed Lab 10/24/23 13:00 Ordered Platelet Count Q2D Lab 10/25/23 04:00 Ordered Platelet Count Q2D Lab 10/27/23 04:00 Ordered Prothrombin Time INR AM LABS Lab 10/25/23 04:00 Ordered Prothrombin Time INR AM LABS Lab 10/26/23 04:00 Ordered MR MRCP [id number] Stat MRI 10/24/23 19:32 Ordered Completed Studies During Hospitalization Category Date Time Status CT abdomen pelvis wo con [id number] Stat Cat Scan 10/23/23 16:18 Completed CXRP [XR chest 1V portable [id number]] Stat Exams 10/23/23 18:45 Completed XR chest 1V portable [id number] Stat Exams 10/23/23 15:05 Completed US gall bladder [id number] Stat Ultrasound 10/23/23 17:38 Completed Laboratory Last Values WBC 14.89 10^3/uL (3.29-11.43) H 10/24/23 05:30 RBC 3.52 10^6/uL (3.85-5.65) L 10/24/23 05:30 Hgb 11.40 g/dL (11.27-16.99) 10/24/23 05:30 Hct 34.9 % (37-53) L 10/24/23 05:30 MCV 99.1 fl (82-101) 10/24/23 05:30 MCH 32.4 pg (27-33) 10/24/23 05:30 MCHC 32.7 g/dL (30-55) 10/24/23 05:30 RDW 16.3 % (12.1-15.1) H 10/24/23 05:30 Plt Count 209 10^3/cmm (157-399) 10/24/23 05:30 MPV 10.2 fL (7.4-10.4) 10/24/23 05:30 Neut % (Auto) 92.3 % 10/23/23 15:14 Lymph % (Auto) Not Reportable 10/24/23 05:30 Morgan % (Auto) Not Reportable 10/24/23 05:30 Eos % (Auto) 0.0 % 10/23/23 15:14 Baso % (Auto) 0.2 % 10/23/23 15:14 Neut # (Auto) 4.25 10^3/uL (1.8-7.7) 10/23/23 15:14 Lymph # (Auto) Not Reportable 10/24/23 05:30 Morgan # (Auto) Not Reportable 10/24/23 05:30 Eos # (Auto) 0.0 10^3/uL (0.0-0.8) 10/23/23 15:14 Baso # (Auto) 0.0 10^3/uL (0.0-0.1) 10/23/23 15:14 Nucleated RBC % (auto) 0 % 10/23/23 15:14 Total Counted 100 (0-100) 10/24/23 05:30 Atypical Lymphs % 0.0 % (0-5) 10/24/23 05:30 Absolute Neutrophils 13.3 10^3/cmm (1.4-6.5) H 10/24/23 05:30 Segmented Neutrophils 62 % 10/24/23 05:30 Abs Segm Neuts (Man) 9.2 10/cmm (1.6-7.1) H 10/24/23 05:30 Band Neutrophils 27.0 % 10/24/23 05:30 Abs Band Neuts (Man) 4.0 10^3/cmm (0.0-1.2) H 10/24/23 05:30 Absolute Lymphocytes 1.0 10^3/cmm (1.2-3.4) L 10/24/23 05:30 Lymphocytes (Manual) 7 % 10/24/23 05:30 Monocytes (Manual) 4.0 % 10/24/23 05:30 Absolute Monocytes 0.6 10^3/cmm (0.1-0.6) 10/24/23 05:30 Eosinophils (Manual) 0 % 10/24/23 05:30 Absolute Eosinophils 0.0 10^3/cmm (0.0-0.7) 10/24/23 05:30 Basophils (Manual) 0.0 % 10/24/23 05:30 Absolute Basophils 0.0 10^3/cmm (0.0-0.2) 10/24/23 05:30 Nucleated RBCs # 0.0 /100WBC 10/23/23 15:14 Platelet Estimate Normal (Normal) 10/24/23 05:30 Anisocytosis Trace 10/24/23 05:30 ESR 49 mm/hr (0-10) H 10/23/23 15:14 PT 26.10 SECONDS (12.1-14.9) H 10/24/23 05:30 INR 2.30 (0.8-1.2) H 10/24/23 05:30 APTT > 250.0 SECONDS (23.9-36.7) H* D 10/24/23 05:30 APTT Cancelled 10/24/23 05:30 Fibrinogen 630 mg/dL (174-498) H 10/24/23 05:30 D-Dimer 1.44 ug/mLFEU (0-0.59) H 10/24/23 05:30 Specimen Type Arterial 10/24/23 04:49 Sample Site Not specified 10/24/23 04:49 ABG pH 7.24 (7.35-7.45) L 10/24/23 04:49 ABG pCO2 33.4 mmHg (35-45) L 10/24/23 04:49 ABG pO2 89.7 mmHg (80.0-100.0) 10/24/23 04:49 ABG PO2/FiO2 Ratio 0 10/23/23 15:15 ABG HCO3 14.4 mmol/L (22-26) L 10/24/23 04:49 ABG O2 Saturation 99.0 10/23/23 15:15 ABG Base Excess -11.9 mmol/L (-2.0-2.0) L 10/24/23 04:49 Gio Test Pos 10/24/23 04:49 A-a O2 Gradient 14.3 mmHg (5-10) H 10/23/23 15:15 Hematocrit 32.6 % (42-52) L 10/24/23 04:49 Hgb O2 Saturation 97.1 % (95-100) 10/23/23 15:15 Carboxyhemoglobin 1.4 %THgb (0.4-20.1) 10/23/23 15:15 Methemoglobin 0.5 % (0.4-1.5) 10/23/23 15:15 Total Hemoglobin 13.6 g/dL (14-18) L 10/23/23 15:15 Sodium 129.0 mmol/L (131-143) L 10/23/23 15:15 Potassium 2.6 mmol/L (3.5-5.0) L 10/23/23 15:15 Glucose 91.0 mg/dL (70-115) 10/23/23 15:15 Ionized Calcium 1.1 mmol/L (1.1-1.4) 10/23/23 15:15 O2 Delivery Device Nc 10/24/23 04:49 O2 Liters/Min 3.0 % 10/24/23 04:49 FiO2 36.0 % 10/23/23 15:15 Felling Machine Operator ID Yves 10/24/23 04:49 Sodium 128 mmol/L (136-145) L 10/24/23 05:30 Potassium 3.5 mmol/L (3.5-5.1) 10/24/23 05:30 Chloride 91 mmol/L (98-107) L 10/24/23 05:30 Carbon Dioxide 16 mmol/L (22-29) L 10/24/23 05:30 Anion Gap 24.5 (5-19) H 10/24/23 05:30 BUN 20 mg/dL (8-23) 10/24/23 05:30 Creatinine 1.6 mg/dL (0.7-1.2) H 10/24/23 05:30 GFR Calculation 43.7 mL/min (90-130) L 10/24/23 05:30 Glucose 315 mg/dL (65-115) H 10/24/23 05:30 POC Glucose 272 mg/dL (70-110) H 10/24/23 08:07 Estimat Average Glucose 103 10/23/23 21:55 Hemoglobin A1c 5.2 % (4.0-6.0) 10/23/23 21:55 Calculated Osmolality 281 mOsm/kg (285-295) L 10/24/23 05:30 Lactic Acid 8.4 mmol/L (0.5-2.2) H* 10/24/23 05:30 Lactic Acid (Sepsis) 5.2 mmol/L (0.5-2.2) H* 10/23/23 19:35 Calcium 7.0 mg/dL (8.5-10.5) L 10/24/23 05:30 Phosphorus 3.9 mg/dL (2.5-4.5) 10/24/23 05:30 Magnesium 1.5 mg/dL (1.7-2.3) L 10/24/23 05:30 Total Bilirubin 6.9 mg/dL (0.15-1.2) H 10/24/23 05:30 GGT 616 U/L (8-61) H 10/23/23 15:14 AST 141 U/L (0-40) H 10/24/23 05:30 ALT 68 U/L (0-41) H 10/24/23 05:30 Alkaline Phosphatase 218 U/L (40-130) H 10/24/23 05:30 Ammonia 62 umol/L (16-60) H 10/23/23 15:14 Creatine Kinase 437 U/L (39-308) H* 10/23/23 15:14 Troponin T Baseline 25 ng/L (0-15) H 10/23/23 15:14 Troponin T 120 Minute 20.87 ng/L (0-15) H 10/23/23 19:35 Delta Troponin T -4.13 ABS# (0-10) L 10/23/23 19:35 Troponin T Hi Sens 6Hr 20.29 ng/L (0-15) H 10/23/23 21:55 Troponin T Hi Sens 6Hr Delta -4.71 ng/L (0-12) L 10/23/23 21:55 C-Reactive Protein 252.8 mg/L (0.0-4.9) H 10/24/23 05:30 NT-Pro-B Natriuret Pep 8244 pg/mL (0-125) H 10/24/23 05:30 Total Protein 6.0 g/dL (6.6-8.7) L D 10/24/23 05:30 Albumin 2.9 g/dL (3.5-5.2) L 10/24/23 05:30 Globulin 3.1 g/dL (1.3-4.6) 10/24/23 05:30 Triglycerides 152 mg/dL (0-150) H 10/23/23 21:55 Cholesterol 125 mg/dL (0-200) 10/23/23 21:55 LDL Cholesterol, Calc 81 mg/dL (50-129) 10/23/23 21:55 HDL Cholesterol 14 mg/dL (60-100) L 10/23/23 21:55 LDL/HDL Ratio 5.79 RATIO (0.00-3.22) H 10/23/23 21: Cholesterol/HDL Ratio 8.93 mg/dL (1.0-5.00) H 10/23/23 21:55 Lipase 644 U/L (13-60) H 10/23/23 15:14 Procalcitonin 23.47 ng/mL (0-0.5) H 10/23/23 15:14 TSH 0.89 uIU/mL (0.27-4.20) 10/23/23 21:55 Urine Color Dark yellow (Yellow) 10/23/23 16:00 Urine Appearance Hazy (CLEAR) A 10/23/23 16:00 Urine pH 5 (5-7) 10/23/23 16:00 Ur Specific [place] 1.020 (1.005-1.030) 10/23/23 16:00 Urine Protein Trace (Negative) 10/23/23 16:00 Urine Glucose (UA) Norm (Normal) 10/23/23 16:00 Urine Ketones Negative (Negative) 10/23/23 16:00 Urine Blood 3+ (Negative) H 10/23/23 16:00 Urine Nitrate Negative (Negative) 10/23/23 16:00 Urine Bilirubin 2+ (Negative) H 10/23/23 16:00 Urine Urobilinogen 1 mg/dL (Negative) H 10/23/23 16:00 Ur Leukocyte Esterase Negative (Negative) 10/23/23 16:00 Urine RBC 5-10 /hpf (0-2) H 10/23/23 16:00 Urine WBC 0-4 /hpf (0-5) H 10/23/23 16:00 Ur Squamous Epith Cells None /hpf (0-5) 10/23/23 16:00 Ur Transition Epith Cell 0-4 /hpf 10/23/23 16:00 Amorphous Sediment Trace /hpf 10/23/23 16:00 Urine Bacteria Trace /hpf (NONE) 10/23/23 16:00 Urine Mucus None /hpf 10/23/23 16:00 Serum Ketones Negative (Negative) 10/23/23 15:14 Radiology Impressions Abdomen/Pelvis CT 10/23/23 16:18 IMPRESSION: No acute abdominal findings. Gallbladder Ultrasound 10/23/23 17:38 IMPRESSION: 1. Biliary ductal dilatation with the common bile duct measuring up to approximately 1.7 cm. Correlate with LFTs and, if clinically indicated, ERCP or MRCP. 2. Fatty liver. Recent Clincial Data Last Vital Signs Temp 98.2 F 10/24/23 04:00 Pulse 87 10/24/23 07:30 Resp 32 H 10/24/23 07:30 BP 118/61 10/24/23 07:30 Pulse Ox 86 L 10/24/23 07:30 O2 Del Method Nasal Cannula 10/24/23 04:00 O2 Flow Rate 3 10/24/23 04:00 Vital Signs Temp Pulse Resp BP Pulse Ox O2 Del Method O2 Flow Rate 10/24/23 07:30 87 32 H 118/61 86 L 10/24/23 07:15 93 30 H 107/60 93 10/24/23 07:00 86 32 H 114/65 95 10/24/23 06:45 84 31 H 111/61 95 10/24/23 06:30 86 24 H 102/57 95 10/24/23 06:15 82 29 H 107/62 92 10/24/23 06:00 87 28 H 104/60 95 10/24/23 06:00 93 10/24/23 05:45 90 24 H 98/58 96 10/24/23 05:30 82 32 H 108/71 95 10/24/23 05:15 83 31 H 94/53 92 10/24/23 05:00 82 31 H 90/53 94 10/24/23 04:45 94 28 H 92/54 94 10/24/23 04:30 97 32 H 92/47 95 10/24/23 04:15 103 H 19 H 87/44 95 10/24/23 04:00 98.2 F 105 H 32 H 104/51 94 Nasal Cannula 3 10/24/23 03:45 108 H 32 H 100/49 94 10/24/23 03:30 100 31 H 100/49 94 10/24/23 03:15 105 H 33 H 107/50 95 10/24/23 03:00 103 H 23 H 100/48 95 10/24/23 02:45 104 H 18 98/46 95 10/24/23 02:30 112 H 25 H 125/54 96 10/24/23 02:15 104 H 30 H 117/53 95 10/24/23 02:00 103 H 31 H 116/54 96 10/24/23 01:45 104 H 32 H 120/53 95 10/24/23 01:30 98 31 H 106/47 95 10/24/23 01:15 104 H 21 H 129/55 95 10/24/23 01:00 113 H 30 H 128/53 95 10/24/23 00:45 108 H 30 H 116/50 96 10/24/23 00:30 113 H 27 H 107/58 94 10/24/23 00:15 111 H 26 H 98/43 95 10/24/23 00:00 109 H 32 H 101/46 95 10/23/23 23:45 98.4 F 106 H 23 H 101/45 96 Nasal Cannula 3 10/23/23 23:30 111 H 22 H 100/43 97 10/23/23 23:15 101 H 29 H 97/46 97 10/23/23 23:00 102 H 30 H 112/48 98 10/23/23 22:45 103 H 32 H 109/49 98 10/23/23 22:30 97 34 H 112/49 97 10/23/23 22:15 97 32 H 111/50 97 10/23/23 22:00 92 28 H 117/55 96 10/23/23 22:00 101 H 10/23/23 21:45 100 31 H 103/49 97 10/23/23 21:30 90 25 H 100/50 96 10/23/23 21:15 99 23 H 107/54 97 10/23/23 21:00 93 31 H 74/44 96 Nasal Cannula 3 10/23/23 20:53 Nasal Cannula 10/23/23 20:45 98.7 F 78/51 Intake & Output/Weight 10/22/23 10/23/23 10/24/23 10/25/23 06:59 06:59 06:59 06:59 Intake Total 6754.780 / 6754.780 1757.48 / 1757.48 Output Total 1600 / 1600 400 / 400 Balance 5154.780 / 5154.780 1357.48 / 1357.48 Weight 190.055 kg Vitals Last Vital Signs Temp 98.2 F 10/24/23 04:00 Pulse 87 10/24/23 07:30 Resp 32 H 10/24/23 07:30 BP 118/61 10/24/23 07:30 Pulse Ox 86 L 10/24/23 07:30 O2 Del Method Nasal Cannula 10/24/23 04:00 O2 Flow Rate 3 10/24/23 04:00 TS Medications Medications Acetaminophen (Acetaminophen 325 Mg Tablet) 650 mg PO Q6H PRN PRN Reason: Mild/Mod Pain Or Temp >/= 101 Benzonatate (Benzonatate 100 Mg Capsule) 100 mg PO TID PRN PRN Reason: COUGH Last Admin: 10/24/23 06:56 Dose: 100 mg Heparin Sodium (Porcine) (Heparin 5,000 Unit/Ml Inj 1 Ml) 0 unit IV PRN PRN; Protocol PRN Reason: Heparin weight-base protocol norepinephrine (Levophed) 4 mg in 250 mls @ 0 mls/hr IV .Q0M [facility]; Protocol Last Admin: 10/24/23 08:02 Dose: 20 mcg/min, 75 mls/hr Vasopressin (Vasostrict) 40 unit in 100 mls @ 0.075 mls/min IV CONT OMAR Last Admin: 10/24/23 07:26 Dose: 0.08 mls/min Epinephrine HCl 2.5 mg/ Sodium (Chloride) 252.5 mls @ 0 mls/hr IV .Q0M [facility]; Protocol Last Titration: 10/24/23 04:08 Dose: 0 mcg/kg/min, 0 mls/hr Sodium Chloride (Sodium Chloride 0.9%) 1,000 mls @ 100 mls/hr IV .Q10H [facility] Last Admin: 10/24/23 08:40 Dose: 100 mls/hr Piperacillin Sod/Tazobactam (Sod 3.375 gm/ Sodium Chloride) 50 mls @ 12.5 mls/hr IV Q8H [facility]; Protocol Last Infusion: 10/24/23 06:03 Dose: Infused Dextrose (D5w) 500 mls @ 0 mls/hr IV ONCE PRN; Protocol PRN Reason: Adult Acute Hypoglycemia Prot Dextrose (D10w) 125 mls @ 750 mls/hr IV PRN PRN; Protocol PRN Reason: Adult Acute Hypoglycemia Nursing Protocol Dextrose (D10w) 250 mls @ 1,000 mls/hr IV PRN PRN; Protocol PRN Reason: Adult Acute Hypoglycemia Nursing Protocol Albumin Human (Albumin) 25 g in 100 mls @ 60 mls/hr IV Q8H [facility] Last Admin: 10/24/23 05:51 Dose: 60 mls/hr Heparin Sodium/Sodium Chloride (Heparin Drip) 25,000 unit in 500 mls @ 0 mls/hr IV .Q0M [facility]; Protocol Last Titration: 10/24/23 07:15 Dose: 0 unit/kg/hr, 0 mls/hr Insulin Human Lispro (Insulin Lispro 100 Unit/1 Ml) 0 unit SUBCUT TIDWM [facility]; Protocol Last Admin: 10/24/23 08:11 Dose: 8 unit Lanolin (Lanolin Oint 7 Gm) 1 applic TOPICAL PRN PRN PRN Reason: DRYNESS Last Admin: 10/24/23 02:11 Dose: 1 applic Metoclopramide HCl (Metoclopramide 5 Mg/Ml Sdv 2 Ml) 5 mg IVP Q6H PRN PRN Reason: NAUSEA AND VOMITING Last Admin: 10/24/23 07:02 Dose: 5 mg Ondansetron HCl (Ondansetron 2 Mg/Ml Sdv 2 Ml) 4 mg IVP Q8H PRN PRN Reason: vomiting, or N/V if npo Last Admin: 10/24/23 04:58 Dose: 4 mg Pantoprazole Sodium (Pantoprazole 40 Mg Sdv) 40 mg IVP Q12H OMAR Last Admin: 10/23/23 21:25 Dose: 40 mg Phenol (Phenol Oral Brooks 177 Ml) 3 spray MUCOUS MEM Q2H PRN PRN Reason: SORE THROAT Last Admin: 10/24/23 04:33 Dose: 3 spray Promethazine HCl (Promethazine 25 Mg/Ml Sdv 1 Ml) 12.5 mg IM Q6H PRN PRN Reason: NAUSEA Last Admin: 10/24/23 02:20 Dose: 12.5 mg Discontinued Medications Sodium Chloride (Sodium Chloride 0.9%) 1,000 mls @ 999 mls/hr IV .Q1H1M ONE Stop: 10/23/23 15:48 Last Infusion: 10/23/23 15:18 Dose: Infused Levofloxacin/Dextrose (Levaquin-D5w) 750 mg in 150 mls @ 100 mls/hr IV ONCE ONE; Protocol Stop: 10/23/23 17:30 Last Infusion: 10/23/23 17:52 Dose: Infused Sodium Chloride (Sodium Chloride 0.9%) 2,250.03 mls @ 2,250.03 mls/hr IV .Q1H ONE Stop: 10/23/23 18:33 Last Infusion: 10/23/23 19:20 Dose: Infused Piperacillin Sod/Tazobactam (Sod 3.375 gm/ Sodium Chloride) 50 mls @ 100 mls/hr IV ONCE ONE; Protocol Stop: 10/23/23 18:18 Last Infusion: 10/23/23 20:18 Dose: Infused Amiodarone HCl/Dextrose (Nexterone) 360 mg in 200 mls @ 0 mls/hr IV .Q0M OMAR; Protocol Albumin Human (Albumin) 50 g in 200 mls @ 60 mls/hr IV ONCE ONE Stop: 10/23/23 23:04 Last Infusion: 10/24/23 00:54 Dose: Infused Vancomycin/PEG/NADA/Lysine/Water (Vancocin) 2,000 mg in 400 mls @ 200 mls/hr IV Q18H ONE Stop: 10/23/23 21:59 Last Infusion: 10/23/23 23:51 Dose: Infused Metoclopramide HCl (Metoclopramide 5 Mg/Ml Sdv 2 Ml) 5 mg IVP ONCE ONE Stop: 10/23/23 19:52 Last Admin: 10/23/23 20:12 Dose: 5 mg Ondansetron HCl (Ondansetron 2 Mg/Ml Sdv 2 Ml) 4 mg IVP ONCE ONE Stop: 10/23/23 14:49 Last Admin: 10/23/23 15:44 Dose: 4 mg Potassium Chloride (Potassium Chloride Oral Liq 20 Meq/15 Ml Udc) 40 meq PO ONCE ONE Stop: 10/23/23 15:33 Last Admin: 10/23/23 16:49 Dose: 40 meq Sodium Bicarbonate (Sodium Bicarbonate 8.4% 1 Meq/Ml 50ml Syr) 50 meq IVP ONCE ONE Stop: 10/23/23 20:52 Last Admin: 10/23/23 21:25 Dose: 50 meq Sodium Bicarbonate (Sodium Bicarbonate 8.4% 1 Meq/Ml 50ml Syr) 50 meq IVP ONCE ONE Stop: 10/24/23 06:06 Last Admin: 10/24/23 06:39 Dose: 50 meq Allergies No Known Allergies Allergy (Verified 10/23/23 15:02) Home Medications famotidine 20 mg tablet 20 mg PO BID 10/24/23 [History Confirmed 10/24/23] furosemide 80 mg tablet 160 mg PO DAILY 10/24/23 [History Confirmed 10/24/23] glimepiride 4 mg tablet 4 mg PO DAILY 10/24/23 [History Confirmed 10/24/23] ibuprofen 800 mg tablet 800 mg PO TID 10/24/23 [History Confirmed 10/24/23] losartan 25 mg tablet 25 mg PO DAILY 10/24/23 [History Confirmed 10/24/23] pioglitazone 30 mg tablet 30 mg PO DAILY 10/24/23 [History Confirmed 10/24/23] potassium chloride 20 mEq tablet,extended release 40 meq PO Q72H 10/24/23 [History Confirmed 10/24/23] pravastatin 20 mg tablet 20 mg PO BEDTIME 10/24/23 [History Confirmed 10/24/23] rivaroxaban 20 mg tablet (Xarelto) 20 mg PO DAILY 10/24/23 [History Confirmed 10/24/23] Discharge Plan Discharge Patient Disposition: Xfer Other Condition: Serious Prescriptions: No Action pioglitazone 30 mg tablet 30 mg PO DAILY losartan 25 mg tablet 25 mg PO DAILY furosemide 80 mg tablet 160 mg PO DAILY pravastatin 20 mg tablet 20 mg PO BEDTIME ibuprofen 800 mg tablet 800 mg PO TID potassium chloride 20 mEq tablet extended release 40 meq PO Q72H famotidine 20 mg tablet 20 mg PO BID glimepiride 4 mg tablet 4 mg PO DAILY Xarelto 20 mg Tablet 20 mg PO DAILY Rx Instructions: must administer with evening meal Patient Instructions: Opioid Safety Transfer Attestations Time Spent in Transfer Care: greater than 30 min Quality Metrics Clinical Quality Measures [ No reported AMI, CVA or VTE this stay] Coding Level of Care Code 64329 Total time (in minutes) for Discharge: 50 Diagnoses Septic shock A41.9; R65.21 Acute obstructive cholangitis K83.09 Lactic acidosis E87.20 Acute hypoxemic respiratory failure J96.01 Hyponatremia E87.1 Hypokalemia E87.6 Acute renal failure N17.9 Dilated cbd, acquired K83.8 Hyperbilirubinemia E80.6 NSTEMI (non-ST elevated myocardial infarction) I21.4 Morbid obesity E66.01
[2023-10-24 09:08] LABS: Lactic Acid level (Lactate) 4.2 mmol/L (0.5-2.2)
[2023-10-24] MEDS: LORazepam 2 mg/mL INJ 10 mL MDV 0.5 MG IVP (11:14)
--- NOTE | 2023-10-24 11:38 | PC.NURSE ---
1130 Finally ground ambulance [facility] took patient in route to [facility]. Report given to rohan with Levo drip at 20, and Norepi at 0.03 per MAR. 2 sisters at bedside, patient awake and alert. No complaints. VSS. Notified Med ICU unit in [place] of delay will arrive 2 hours later than originally expected. Family packed up clothes and phone.
[2023-10-31 08:20] LABS: Fibrinogen Degradation Product <5 mcg/mL (LESS THAN 5)
== END 2023-10-24 11:05 | disposition short-term general hospital (02) | DRG 871 ==
LOC: ER 18:06 → ICU 19:54
PROVIDERS: Family Medicine; Physician Assistant; Admitting Provider Family Medicine; Emergency Provider Emergency Medicine; PCP Family Medicine; Visit Provider Internal Medicine
DX: A41.9 Sepsis, unspecified organism (principal); I21.4 Non-ST elevation (NSTEMI) myocardial infarction; J96.01 Acute respiratory failure with hypoxia; R65.21 Severe sepsis with septic shock; N17.9 Acute kidney failure, unspecified; Z68.43 Body mass index [BMI] 50.0-59.9, adult; K83.09 Other cholangitis; E87.20 Acidosis, unspecified; E87.1 Hypo-osmolality and hyponatremia; I10 Essential (primary) hypertension; E11.9 Type 2 diabetes mellitus without complications; Z86.718 Personal history of other venous thrombosis and embolism; Z79.01 Long term (current) use of anticoagulants; Z86.711 Personal history of pulmonary embolism; I48.91 Unspecified atrial fibrillation; E66.01 Morbid (severe) obesity due to excess calories; E78.5 Hyperlipidemia, unspecified; G47.33 Obstructive sleep apnea (adult) (pediatric); Z99.89 Dependence on other enabling machines and devices; E87.6 Hypokalemia; K83.8 Other specified diseases of biliary tract
CPT/HCPCS: 36415; 36416; 36556; 36592; 36600; 51702; 71045; 74176; 76705; 80051; 80053; 80061; 81001; 82009; 82140; 82330; 82550; 82803; 82805; 82962; 82977; 83036; 83605; 83690; 83735; 83880; 84100; 84145; 84443; 84484; 85007; 85025; 85049; 85362; 85378; 85384; 85610; 85651; 85730; 86140; 87040; 93005; 96365; 96366; 96367; 96372; 96375; 99291; C9113; J0171; J1644; J1815; J1956; J2060; J2405; J2543; J2550; J2598; J2765; J3372; J7030; J7050; P9046